=== PATIENT | male | born 1965 | race Caucasian/White ===

== ENCOUNTER → 2024-11-22 | Outpatient (CLI) | payer OTHER ==
[2024-11-22 11:13] LABS: Partial Thromboplastin Time 29.5 sec (22.0-30.0); Prothrombin Time 10.9 sec (10.0-12.5)
[2024-11-22 15:10] LABS: HCT 45.5 % (39.6-50.0); HGB 14.7 g/dL (13.0-17.0); MCH 30.7 pg (27.0-32.0); MCHC 32.3 g/dL (32.0-37.0); Mean Platelet Volume 8.6 FL (9.5-12.2); NRBC Per 100 WBC 0 X 10*3/uL (0.00-0.01); Platelet Count 256 X 10*3/uL (140-440); RBC 4.79 X 10*6/uL (4.40-5.60); RDW 12.3 % (11.5-14.5); WBC 8.48 X 10*3/uL (4.50-10.00)
[2024-11-22 15:14] LABS: BUN/Creat Ratio 14.82 Ratio (12.00-20.00); Blood Urea Nitrogen 16.3 mg/dL (9.0-27.0); Glucose 101 mg/dL (70-110)
[2024-11-22 15:15] LABS: ALT 24 U/L (10-49); AST 20 U/L (14-35); Albumin 4.4 g/dL (3.8-4.9); Albumin/Globulin Ratio 1.91 Ratio (1.60-3.17); Alkaline Phosphatase 69 U/L (41-126); Calcium 9.1 mg/dL (8.7-10.3); Carbon Dioxide 28.6 mmol/L (21.6-31.8); Chloride 103 mmol/L (96-109); Globulin 2.3 g/dL (1.6-3.3); Potassium 4.5 mmol/L (3.5-5.5); Sodium 142 mmol/L (135-145); Total Bilirubin 0.6 mg/dL (0.3-1.2); Total Protein 6.7 g/dL (6.2-8.2)
== END | disposition home or self-care (01) ==
LOC: LABPAT 10:04
PROVIDERS: ATTEND Orthopaedic Surgery Sports Medicine
DX: Z22.322 Carrier or suspected carrier of Methicillin resistant Staphylococcus aureus (principal); Z01.818 Encounter for other preprocedural examination; M17.12 Unilateral primary osteoarthritis, left knee
CPT/HCPCS: 80053; 85027; 85610; 85730; 87070; 93005

== ENCOUNTER 2024-12-12 08:23 | Day surgery (SDC) | payer OTHER ==
[~2024-12-12 08:23] MED LIST: TRANEXAMIC 1,000 MG/100ML-NACL 1,000 MG in SALINE 1 100ML.BAG IVPB PRN
[2024-12-12] MEDS ORDERED: LIDOCAINE 1% (10MG/ML) FOR IV START INTRADERMA PRN (08:40)
[2024-12-12] MEDS: IV FLUID CONTINUATION 1,000 ML IV ONE ×2 (08:52→15:00)
[2024-12-12] MEDS: LACTATED RINGERS 1,000 ML IV SCH ×2 (09:13→17:03)
[2024-12-12] MEDS: GABAPENTIN 300 MG CAP PO PRN (09:14)
[2024-12-12] MEDS: ACETAMINOPHEN TAB 500 MG TAB PO PRN (09:14)
[2024-12-12] MEDS: ONDANSETRON 4 MG/2 ML VIAL IVP PRN (09:14)
[2024-12-12] MEDS: MELOXICAM 7.5 MG TAB PO PRN (09:14)
[2024-12-12 09:17] LABS: Glucose,Whole Blood 110 mg/dL (70-110)
[2024-12-12] MEDS: MIDAZOLAM 2 MG/2 ML VIAL IV ONE (09:34)
[2024-12-12] MEDS: DEXAMETHASONE SOD PHOSPHATE 4 MG/ML 1 ML VIAL IVP STA (09:49)
[2024-12-12] MEDS ORDERED: MIDAZOLAM 2 MG/2 ML VIAL ONE (10:18)
[2024-12-12] MEDS ORDERED: ROPIVACAINE 5 MG/ML 30 ML VIAL ONE (10:18)
[2024-12-12] MEDS ORDERED: TRANEXAMIC 1,000 MG/100ML-NACL PREMIX BAG ONE (10:18)
[2024-12-12] MEDS ORDERED: DEXAMETHASONE SOD PHOSPHATE 4 MG/ML 1 ML VIAL ONE (10:18)
[2024-12-12] MEDS ORDERED: PROPOFOL 10 MG/ML 20 ML VIAL IV ONE (10:18)
[2024-12-12] MEDS ORDERED: bisacodyL 10 MG SUPP RECTAL PRN (10:33)
[2024-12-12] MEDS ORDERED: HYDROmorphone 0.5 MG/0.5 ML SYRINGE IVP PRN (10:33)
[2024-12-12] MEDS ORDERED: NALOXONE 0.4 MG/ML 1 ML VIAL IV PRN (10:33)
[2024-12-12] MEDS ORDERED: NA PHOS,M-B/NA PHOS,DI-BA 133 ML ENEMA RECTAL PRN (10:33)
[2024-12-12] MEDS ORDERED: ACETAMINOPHEN TAB 325 MG TAB PO PRN (10:33)
[2024-12-12] MEDS ORDERED: hydrOXYzine pamoate 25 MG CAP PO PRN (10:33)
[2024-12-12] MEDS ORDERED: HYDROmorphone 1 MG/ML 1 ML SYRINGE IVP PRN (10:33)
[2024-12-12] MEDS ORDERED: MAGNESIUM HYDROXIDE 2,400 MG/30 ML CUP PO PRN (10:33)
[2024-12-12] MEDS ORDERED: ONDANSETRON 4 MG/2 ML VIAL IVP PRN (10:33)
--- NOTE | 2024-12-12 13:12 | XR ---
EXAMINATION TYPE: XR knee limited 2 views LT DATE OF EXAM: 12/12/2024 COMPARISON: NONE CLINICAL INDICATION: Male, 59 years old with history of Evaluation for Postop abnormality and alignme nt; FINDINGS: Images show placement of left total knee arthroplasty. Distal femoral and proximal tibial components of the prosthesis appear well seated without periprosthetic fracture. Alignment grossly anatomic. Ant erior soft tissue swelling with soft tissue air as well as intra-articular air related to recent oper ation. IMPRESSION: Uncomplicated postoperative appearance left total knee arthroplasty. [facility], Workstation: [id number], 12/12/2024 1:09 PM
[2024-12-12] MEDS: ROPIVACAINE 1,100 MG, SODIUM CHLORIDE 0.9% 500 ML 330 ML, EMPTY PAIN BALL 1 EACH MISCELLANE PRN (14:09)
[2024-12-12] MEDS: HYDROmorphone 0.5 MG/0.5 ML SYRINGE IVP PRN ×2 (14:53→20:32)
[2024-12-12] MEDS: HYDROcodone/APAP 7.5-325MG 1 EACH TAB PO PRN (17:09)
--- NOTE | 2024-12-12 19:18 | OP ---
OPERATIVE REPORT DATE OF SERVICE : 12/12/2024 GASKET INSPECTOR: Cuate Bowen PA-C. PREOPERATIVE DIAGNOSIS: Left knee osteoarthrosis. POSTOPERATIVE DIAGNOSIS: Left knee osteoarthrosis. OPERATION: Left total knee arthroplasty. ANESTHESIA: Spinal with sedation. ESTIMATED BLOOD LOSS: 100 mL. TOURNIQUET TIME: 56 minutes at 250 mmHg. COMPLICATIONS: None apparent. DRAINS: None. DISPOSITION: Postanesthesia care unit. INDICATIONS: Joseph is a very pleasant 59-year-old male with longstanding history of left knee pain. History and physical examination are consistent with advanced left knee osteoarthrosis. He has been through significant operative management up to this point. Further treatment options were discussed. He decided to go forward with a left total knee arthroplasty. Risks of procedure were discussed with him in detail. These risks included but were not limited to risk of infection, nerve damage, bleeding, pain, and a small risk of deep vein thrombosis which could lead to fatal pulmonary embolism. There is also small risk of loosening of the implant which could require revision operation. The patient understands these risks. All of his questions with regard to the procedure were answered to his satisfaction. Appropriate informed consent was obtained. DESCRIPTION OF PROCEDURE: The patient was identified in the preoperative holding area. Surgical site was marked by both the patient and myself. He was given 2 g of Ancef IV for prophylactic purposes. He was then transported to the operative suite. He was placed supine on the operating table. Spinal anesthetic was then administered and dosed per the anesthesia department without apparent complication. Examination under anesthesia was then performed. The patient was 2 to 3 degrees shy of full extension. He had 100 degrees of flexion in the medial collateral ligament, lateral collateral ligament, and posterior cruciate ligaments were stable. Tourniquet was then placed high on the left upper thigh, well-padded in preparation for surgery. The patient's left lower extremity was then prepped and draped in usual sterile fashion. Standard surgical pause undertaken to ensure that we were operating the correct site and appropriate preoperative antibiotics were given. All staff were in agreement, and we proceeded. The outlines of the patella marked with a surgical pen. A planned 12 cm vertical incision centered over the patella was marked with a surgical pen. Leg was then exsanguinated with an Esmarch dressing. The knee was then flexed and tourniquet was inflated to 250 mmHg. Total tourniquet time for the procedure was 56 minutes. Incision was then made with a 10-blade scalpel. Dissection was carried down sharply to the overlying fascia. Great care was taken to minimize the skin flaps. The knee was then exposed using a standard medial parapatellar approach. A small cuff of quadriceps tendon was then left for suturing. He was in quite a bit of varus preoperatively. A standard medial release was then made. Superficial medial collateral ligament was dissected off the bone around to the posterior aspect of the proximal tibia. The medial meniscus was then excised as well. The lateral meniscus was also released anteriorly. Legs were then externally rotated. The patella was everted. The knee was flexed. The retractors were then placed to protect the collateral ligaments. I then proceeded to remove the infrapatellar fat pad. This excised sharply tangentially with fibers of the patellar tendon. I then proceeded to remove the peripheral osteophytes. This was done with rongeur. I then proceeded with the distal femoral resection. He did have near full extension. A planned 9 mm resection was then done. The femoral canal was then entered in the midline of the femur approximately 10 mm anterior to the origin of the posterior cruciate ligament. The vandana was then advanced on the center of the femur and placed intramedullary. Based on the preoperative radiographs, the angle between the anatomic and mechanical axis of the femur was approximately 4 to 5 degrees. The valgus angle of the distal femoral cutting guide was then set at 4 degrees for the left knee. The distal femoral cutting guide was then advanced over the intramedullary vandana. This was seated firmly against the femur. Then, as mentioned planned to take 9 mm off the distal femur. The cutting block was then secured onto the femur with pins. The jig was then removed. The distal cut was made through the slot of the block. The pins were removed and the distal femoral cutting block was removed. The accuracy of the distal femoral cuts were checked with 2 flat bars. I then proceeded with femoral sizing. Posterior referencing sizing guide was held firmly against the resected distal surface of the femur. The posterior condyles were resting on the posterior plane of the guide. The sizing stylus was then placed onto the anterior femur. The size was measured as a size 9. I then assessed for femoral rotation. The plan was for 3 degrees of external rotation. Three degrees of external rotation was placed onto the jig. These holes were then marked. I then confirmed the rotation by 3 separate methods. This was done using epicondylar axis as well as Whitesides line and posterior referencing. It was deemed that the external rotation was proper. I then went forward with placement of the femoral cutting block. This was placed over the previously placed pin holes. The Nacho wing was then placed on the anterior slots to ensure that we would not notch the anterior femur at the anterior femoral cut. I then proceeded with the anterior femoral cut. This was flushed with the anterior cortex of the femur. Posterior cuts were then made followed by the anterior chamfer cut and the posterior chamfer cut. The cutting block was then removed. Throughout the resection, the collateral ligaments were protected with retractors. I then placed a trial size 9 femur. It fit very nice mediolateral and fit flush with the distal end of the femur. The drill hole was then made. I then proceeded with the tibial cut. I planned for cruciate-retaining knee. The guide was placed and set for varus valgus and for slope. Height set for approximate 2 mm resection from the medial tibial plateau which was the lower side. I was happy with the alignment of moderate resection. Cutting block was then pinned to the proximal tibia. The alignment vandana was removed and the proximal tibia was resected with a reciprocating saw. Again, this was done with retractors protecting the collateral as well as the posterior cruciate ligament. I then proceeded to evaluate the flexion and extension gaps. A 10 mm block was then placed. The flexion extension gaps were equal. I then proceeded to resection of posterior osteophytes. A very extensive posterior osteophytes. This was done using a curved osteotome. This resected the posterior osteophytes, and posterior capsular stripping was done off the posterior aspect of the femur at this time. The osteophytes were then removed. I then proceeded to resect the patella. The thickness of the patella was measured using the caliper. The thickness was 24 mm. The thickness of the anticipated patellar dome was taken into account. Resection was then performed and confirmed to be equal in 4 quadrants using a caliper. Approximately 14 mm of bone remained after resection. A 32 x 8.5 mm standard patellar trial was then placed. The hole was drilled and the trial was then placed. I then proceeded with sizing tibial plate. A size F tibial plate fit very nicely. I then placed the trial femur, the tibial tray, and the patellar button. A 10 mm trial tibial insert was also placed. The components fit very nicely. He had full extension and flexion. The extension and flexion gaps were equal and stable to both varus and valgus stress. The patella tracked appropriately. The tibial tray rotation was then marked with a Bovie. This was externally rotated properly. I then proceeded with tibial preparation. First, drilled the femoral holes and removed the femoral component. The tibial tray was then set for proper external rotation as well as medial and lateral placement onto the tibia. It was then pinned into place. I then proceeded with punching the keel. I then decided to proceed with cementing of all of our components. The knee was thoroughly irrigated with sterile saline solution via pulse lavage. The lateral geniculate artery was identified and cauterized. All blood was removed from the bone of the tibia, femur, and patella with pulsed lavage. I then proceeded with cementing. Two packs of antibiotic bone cement prepared on the back table by surgical appliance fitter. I then proceeded with cementing of the tibia 1st. This was impacted in the keel as well as deeply seated in the bone. A second coat cement was then placed. The tibia was then impacted into place. Excess cement was removed with Naples's and jokers. I then proceeded with cementing of the femoral component. The femoral component was also cemented using standard technique. Excess cement was removed. A 10 mm trial insert was then placed into the knee. It was brought into full extension with a constant axial load placed until the cement had hardened. The patellar component was then cemented. This was held firmly with compressive device until the cement had dried. When the cement had dried, the knee was taken out of extension. All excess cement was removed from around the prosthesis. I then trialed the knee with a 10 mm insert. Flexion and extension gaps were appropriate. The knee was stable. It came into full extension. I decided to go forward with a 10 mm medial congruent cross-linked cruciate- retaining tibial insert. Polyethylene was then placed on the tibial tray and locked into place. The knee was then reduced. The knee was again further irrigated with sterile saline solution with antibiotic added. The tourniquet was then deflated. Total tourniquet time for the procedure was 56 minutes at 250 mmHg. Final components were Antelmo Persona size 9 cruciate-retaining femoral component, a size F tibial tray, a 10 mm medial congruent cruciate-retaining polyethylene insert, and a 32 x 8.5 mm patella. I then proceeded with closure. Again, the knee was thoroughly irrigated. The quadriceps tendon and the medial retinaculum were reapproximated with #2 Ethibond suture. The extensor mechanism was then closed with a running #2 Quill suture. Subcutaneous tissues were closed with 2-0 Vicryl interrupted suture. The skin was closed with a running 3-0 Quill suture. Dermabond was applied to the incision. Sterile compressive dressing was then applied. All sponge and needle counts deemed correct prior to closure. The patient tolerated the procedure without apparent complication. He was transferred to the recovery room in stable condition. MMODL / IJN: [id number] /
[2024-12-12] MEDS: ASPIRIN 81 MG PO SCH (20:31)
[2024-12-12] MEDS: SENNOSIDES-DOCUSATE SODIUM 1 EACH TAB PO SCH (20:31)
--- NOTE | 2024-12-12 21:15 | P.ANPRN ---
Procedure Note - Anesthesia - Nerve Block Performed Left Adductor Canal Infusion Time Out Performed: Yes Date of Procedure: 12/12/24 Procedure Start Time: :34 Procedure Stop Time: :42 Location of Patient: PreOp Indication: Acute Post-Operative Pain, Requested by Surgeon Sedation Type: Sedate with meaningful contact maintained Preparation: Sterile Prep, Sterile Dressing Position: Supine Catheter: Indwelling Needle Types: Pajunk Needle Gauge: 21 Ultrasound used to visualize needle placement: Yes Ultrasound used to observe medication spread: Yes Blood Aspirated: No Pain Paresthesia on Injection Noted: No Resistance on Injection: Normal Image Stored and Saved: Yes Events: Uneventful and Well Tolerated (Ropivacaine 0.5% 20 cc plus dexamethasone 4 mg)
--- NOTE | 2024-12-12 21:17 | P.ANPRN ---
Procedure Note - Anesthesia - Nerve Block Performed Left El Single Time Out Performed: Yes Date of Procedure: 12/12/24 Procedure Start Time: :43 Procedure Stop Time: :45 Location of Patient: PreOp Indication: Acute Post-Operative Pain, Requested by Surgeon Sedation Type: Sedate with meaningful contact maintained Preparation: Sterile Prep Position: Supine Needle Types: Pajunk Needle Gauge: 21 Ultrasound used to visualize needle placement: Yes Ultrasound used to observe medication spread: Yes Blood Aspirated: No Pain Paresthesia on Injection Noted: No Resistance on Injection: Normal Image Stored and Saved: Yes Events: Uneventful and Well Tolerated (Ropivacaine 0.5% 20 cc plus dexamethasone 4 mg)
[2024-12-13 03:23] VITALS: TEMP 97.7
[2024-12-13] MEDS: HYDROcodone/APAP 7.5-325MG 1 EACH TAB PO PRN (06:21)
[2024-12-13 07:29] VITALS: BP 128/81; PULSE 85; RESP 18
[2024-12-13 08:31] LABS: HCT 40.5 % (39.6-50.0); HGB 13.5 g/dL (13.0-17.0); MCH 31.6 pg (27.0-32.0); MCHC 33.3 g/dL (32.0-37.0); MCV 94.8 FL (80.0-97.0); NRBC Per 100 WBC 0 X 10*3/uL (0.00-0.01); Platelet Count 310 X 10*3/uL (140-440); RBC 4.27 X 10*6/uL (4.40-5.60); RDW 12.7 % (11.5-14.5)
[2024-12-13] MEDS: MULTIVITAMINS, THERA 1 EACH TAB PO SCH (08:36)
[2024-12-13 08:59] LABS: Basophils # (A) 0.02 X 10*3/uL (0.00-0.10); Basophils % (A) 0.1 %; Eosinophils # (A) 0 X 10*3/uL (0.04-0.35); Eosinophils % (A) 0 %; Lymphocytes # (A) 0.87 X 10*3/uL (0.90-5.00); Lymphocytes % (A) 4.1 %; Monocytes # (A) 1.97 X 10*3/uL (0.20-1.00); Monocytes % (A) 9.4 %; Neutrophils # (A) 18.01 X 10*3/uL (1.80-7.70); Neutrophils % (A) 85.8 %
--- NOTE | 2024-12-13 13:18 | P.DS ---
Providers Attending physician: Ethan Paz Consults: 12/12/24 10:33 Consult Physician Routine Consulting Provider: Lakeisha Moser Consult Reason/Comments: post op medical management Do you want consulting provider notified?: Yes Primary care physician: Junior Ospina - Discharge Diagnosis(es) (1) Osteoarthritis of left knee Patient was admitted to the OR on 12/12/24 to undergo a left total knee arthroplasty. He had failed conservative measures as an outpatient and desired to proceed with elective surgery after given informed consent. He underwent the above procedure which he tolerated well without complication. Postoperative hospital course has remained without complication. On day of discharge he is afebrile, vital signs stable, labs within acceptable ranges, tolerating by mouth meds and diet, voiding without difficulty, positive flatus, denies abdominal pain or calf pain, pain is controlled on oral pain medication and has no new complaints. Wound is benign, neurovascular status is intact, calf is soft and nontender, abdomen soft and nontender. Review of systems is negative for numbness, tingling, fever, chills, chest pain, shortness of breath, nausea, vomiting, dizziness, headaches, slurred speech or other. Current Visit: Yes Status: Acute Priority: Medium Procedures: Left TKA Patient Condition at Discharge: Good Plan - Discharge Summary Discharge Rx Participant: No New Discharge Prescriptions: New Aspirin [Adult Low Dose Aspirin EC] 81 mg PO BID #60 tab Docusate [Colace] 100 mg PO BID #60 capsule HYDROcodone/APAP 7.5-325MG [Erick 7.5-325] 1 - 2 each PO Q6HR PRN #32 tab PRN Reason: Pain No Action Metoprolol Succinate (ER) [Toprol Xl] 50 mg PO DAILY Omeprazole 20 mg PO DAILY Aspirin 81 mg PO DAILY Rosuvastatin Calcium 10 mg PO HS Losartan/Hydrochlorothiazide [Losartan-Hctz 100-25 mg Tab] 1 tab PO DAILY Discharge Medication List Metoprolol Succinate (ER) [Toprol Xl] 50 mg PO DAILY 11/21/22 [History] Aspirin 81 mg PO DAILY 12/27/22 [History] Losartan/Hydrochlorothiazide [Losartan-Hctz 100-25 mg Tab] 1 tab PO DAILY 12/09/24 [History] Omeprazole 20 mg PO DAILY 12/09/24 [History] Rosuvastatin Calcium 10 mg PO HS 01/27/25 [History] Aspirin [Adult Low Dose Aspirin EC] 81 mg PO BID #60 tab 12/13/24 [Rx] Docusate [Colace] 100 mg PO BID #60 capsule 12/13/24 [Rx] HYDROcodone/APAP 7.5-325MG [Erick 7.5-325] 1 - 2 each PO Q6HR PRN #32 tab 12/13/24 [Rx] Follow up Appointment(s)/Referral(s): [facility], [NON-STAFF] - As Needed Ethan Paz MD [STAFF PHYSICIAN] - 10 Days Activity/Diet/Wound Care/Special Instructions: WBAT F/U in offiice may shower in 3 days if no bleeding take meds as directed Discharge Disposition: HOME WITH HOME HEALTH SERVICES
[2024-12-13] MEDS ORDERED: ATORVASTATIN 20 MG TAB PO SCH (21:00)
[2024-12-14] MEDS ORDERED: METOPROLOL SUCCINATE (ER) 50 MG TAB.ER.24H PO SCH (09:00)
[2024-12-14] MEDS ORDERED: PANTOPRAZOLE 40 MG TABLET PO SCH (09:00)
[2024-12-14] MEDS ORDERED: LOSARTAN-HCTZ 50-12.5 MG 1 EACH TAB PO SCH (09:00)
--- NOTE | 2024-12-14 19:44 | P.CONS ---
History of Present Illness - Reason for Consult Consult date: 12/13/24 - Chief Complaint Medical management - History of Present Illness 59-year-old male patient admitted to the hospital for elective left total knee arthroplasty; patient has history of hypertension, severe DJD, hyperlipidemia; has been following up with orthopedic surgery with severe left knee pain; patient failed conservative treatment and recommended surgical procedure; patient is agreeable and is now admitted for left total knee arthroplasty; and is POD #1 -Reports having being ambulated with with therapy without any concerns Review of Systems REVIEW OF SYSTEMS: CONSTITUTIONAL: No fever, no malaise, no fatigue. HEENT: No recent visual problems or hearing problems. Denied any sore throat. CARDIOVASCULAR: No chest pain, orthopnea, PND, no palpitations, no syncope. PULMONARY: No shortness of breath, no cough, no hemoptysis. GASTROINTESTINAL: No diarrhea, no nausea, no vomiting, no abdominal pain. NEUROLOGICAL: No headaches, no weakness, no numbness. HEMATOLOGICAL: Denies any bleeding or petechiae. GENITOURINARY: Denies any burning micturition, frequency, or urgency. MUSCULOSKELETAL/RHEUMATOLOGICAL: Denies any joint pain, swelling, or any muscle pain. ENDOCRINE: Denies any polyuria or polydipsia. The rest of the 14-point review of systems is negative. Past Medical History Past Medical History: Cancer, Diabetes Mellitus, Hyperlipidemia, Hypertension Additional Past Medical History / Comment(s): skin cancer, "BORDERLINE HISTORY DIABETIC - NEW FOR PT HE ID DOING ACCU CHECK DAILY " diet controlled History of Any Multi-Drug Resistant Organisms: None Reported Past Surgical History: Orthopedic Surgery Additional Past Surgical History / Comment(s): lt shoulder arthroscopy,lt knee scope, colonoscopy, lt shoulder skin cancer removed Past Anesthesia/Blood Transfusion Reactions: No Reported Reaction Smoking Status: Former smoker - Past Family History Father History Unknown: Yes Mother History Unknown: Yes Medications and Allergies Home Medications Medication Instructions Recorded Confirmed Type Metoprolol Succinate (ER) [Toprol 50 mg PO DAILY 11/21/22 12/12/24 History Xl] Aspirin 81 mg PO DAILY 12/27/22 12/09/24 History Losartan/Hydrochlorothiazide 1 tab PO DAILY 12/09/24 12/12/24 History [Losartan-Hctz 100-25 mg Tab] Omeprazole 20 mg PO DAILY 12/09/24 12/12/24 History Rosuvastatin Calcium 10 mg PO HS 12/09/24 12/12/24 History Aspirin [Adult Low Dose Aspirin EC] 81 mg PO BID #60 tab 12/13/24 Rx Docusate [Colace] 100 mg PO BID #60 capsule 12/13/24 Rx HYDROcodone/APAP 7.5-325MG [[place] 1 - 2 each PO Q6HR PRN #32 tab 12/13/24 Rx 7.5-325] Allergies Allergy/AdvReac Type Severity Reaction Status Date / Time No Known Allergies Allergy Verified 12/12/24 08:41 Physical Exam Vitals: Vital Signs Temp Pulse Resp BP Pulse Ox 12/13/24 07:28 97.7 F 85 18 128/81 92 L 12/13/24 02:00 97.7 F 68 17 121/76 91 L 12/12/24 19:31 99 F 75 19 129/73 12/12/24 18:43 98.2 F 75 17 123/72 92 L 12/12/24 16:48 76 144/80 93 L 12/12/24 16:33 70 135/82 92 L 12/12/24 16:18 69 137/80 93 L 12/12/24 16:03 68 152/92 93 L 12/12/24 15:52 98.4 F 67 18 144/85 93 L 12/12/24 15:15 61 16 126/75 98 12/12/24 14:30 58 L 16 129/63 91 L 12/12/24 14:00 63 16 122/65 94 L 12/12/24 13:16 59 L 16 121/73 92 L 12/12/24 13:01 58 L 18 124/70 93 L 12/12/24 12:46 54 L 16 136/70 98 12/12/24 12:31 97.2 F L 54 L 18 141/65 99 Intake and Output 12/12/24 12/13/24 12/13/24 22:59 06:59 14:59 Intake Total 200 Balance 200 Intake: IV 200 Other: Voiding Method Toilet Urinal # Voids 1 1 Weight 107.4 kg - Constitutional General appearance: Present: average body habitus, cooperative, no acute distress - EENT Eyes: Present: anicteric sclerae, EOMI, PERRLA, normal appearance ENT: Present: hearing grossly normal, normal oropharynx Ears: bilateral: normal - Neck Neck: Present: normal ROM. Absent: lymphadenopathy, rigidity, thyromegaly Carotids: negative: bruit present Thyroid: bilateral: normal size, negative: enlarged, nodule - Respiratory Respiratory: bilateral: CTA, negative: rales, rhonchi, wheezing - Cardiovascular Rhythm: regular Heart sounds: normal: S1, S2 Abnormal Heart Sounds: Absent: systolic murmur, diastolic murmur - Gastrointestinal General gastrointestinal: Present: normal bowel sounds, soft. Absent: di stended, organomegaly, tenderness - Genitourinary Genitourinary Comment(s): deferred - Integumentary Integumentary: Present: normal turgor. Absent: jaundiced, rash, ulcer - Neurologic Neurologic: Present: CNII-XII intact. Absent: focal deficits - Musculoskeletal Musculoskeletal: Present: gait normal, strength equal bilaterally - Psychiatric Psychiatric: Present: A&O x's 3, appropriate affect, intact judgment & insight Results CBC & Chem 7: 12/13/24 04:43 Labs: Abnormal Lab Results - Last 24 Hours (Table) 12/13/24 Range/Units 04:43 WBC 21.00 H (4.50-10.00) X 10*3/uL RBC 4.27 L (4.40-5.60) X 10*6/uL MPV 9.0 L (9.5-12.2) FL Immature Gran # 0.13 H (0.00-0.04) X 10*3/uL Neutrophils # 18.01 H (1.80-7.70) X 10*3/uL Lymphocytes # 0.87 L (0.90-5.00) X 10*3/uL Monocytes # 1.97 H (0.20-1.00) X 10*3/uL Eosinophils # 0 L (0.04-0.35) X 10*3/uL Assessment and Plan Assessment: Severe left knee osteoarthritis; Conservative treatment -Patient is status post total left knee arthroplasty; POD #1 -Patient's medications and labs are reviewed and remained stable -Reports working with PT without any concerns Hypertension; losartan/hydrochlorothiazide 67034 1 tablet daily; metoprolol 50 mg daily Hyperlipidemia; Crestor 10 mg daily
== END 2024-12-13 14:07 | disposition home health service (06) ==
LOC: OR 08:23 → 4SSUR 12:20 → OR 12-13 14:07
PROVIDERS: ATTEND Orthopaedic Surgery Sports Medicine
DX: M17.12 Unilateral primary osteoarthritis, left knee (principal); M21.162 Varus deformity, not elsewhere classified, left knee; G89.18 Other acute postprocedural pain; I10 Essential (primary) hypertension; E78.5 Hyperlipidemia, unspecified; Z79.899 Other long term (current) drug therapy; Z87.891 Personal history of nicotine dependence
CPT/HCPCS: 27447; 97161; 64999; 64448; 85025; 73560; C1776; C1713; C1751; J2250; J1100; J0690 ×2; J2405; J2795; J2704; J1171 ×2